=== PATIENT | female | born 1990 | race Two or more races ===

== ENCOUNTER 2017-03-20 08:11 | Day surgery (SDC) | payer OTHER ==
[~2017-03-20] VITALS: Ht 170.2 cm; Wt 68.0 kg
[2017-03-20] VITALS (9 sets, daily range): BP systolic 113–140; BP diastolic 56–74
[2017-03-20] MEDS ORDERED: Betadine 10% Oint 15gm TOPIC ONE (08:38)
[2017-03-20] MEDS ORDERED: Dexamethasone 4mg/ml vial ONE (08:38)
[2017-03-20] MEDS ORDERED: Lidocaine 1% Plain 30 ml INJ ONE (08:39)
[2017-03-20] MEDS ORDERED: Bupivacaine 0.25% Inj 30ml INJ ONE (08:39)
[2017-03-20] MEDS ORDERED: Bacitracin 50000 Units Vial ONE (08:39)
[2017-03-20] MEDS ORDERED: NKM (09:06)
[2017-03-20 09:44] LABS: BASOPHILS % (AUTO) 1.1 % (0.0-2.0); EOSINOPHILS % (AUTO) 0.7 % (0.0-3.0); MEAN CORPUSCULAR HEMOGLOBIN 26.4 PG (27.0-31.0); MEAN CORPUSCULAR VOLUME 83 FL (80-99); MEAN PLATELET VOLUME 8.9 FL (6.5-10.1); MONOCYTES % (AUTO) 7.3 % (1.0-10.0); NEUTROPHILS % (AUTO) 68.9 % (45.0-75.0); PLATELET COUNT 232 K/UL (150-450); RED BLOOD COUNT 4.52 M/UL (4.20-5.40); RED CELL DISTRIBUTION WIDTH 13.2 % (11.6-14.8); WHITE BLOOD COUNT 8.1 K/UL (4.8-10.8)
[2017-03-20 09:48] LABS: ANION GAP 15 (5-15); CALCIUM 8.8 mg/dL (8.6-10.2); CARBON DIOXIDE 24 mEQ/L (20-30); CHLORIDE 102 mEQ/L (98-107); CREATININE 0.7 mg/dL (0.5-0.9); GLOMERULAR FILTRATION RATE > 60 mL/min (>60); HEMOLYSIS 15; POTASSIUM 4.2 mEQ/L (3.4-4.9); SODIUM 141 mEQ/L (135-145)
[2017-03-20] MEDS ORDERED: Lidocaine 1% MPF 10mg/ml 5ml ONE (10:15)
[2017-03-20] MEDS ORDERED: Sterile Water Irrig 1000ml IRRIG ONE (10:15)
[2017-03-20] MEDS ORDERED: fentaNYL 100 mcg/2 mL IV ONE (10:15)
[2017-03-20] MEDS ORDERED: Midazolam 2mg/2ml Inj ONE (10:15)
[2017-03-20] MEDS ORDERED: Propofol 10mg/ml 20ml IV ONE (10:15)
[2017-03-20] MEDS ORDERED: LR 1000ml ONE (10:15)
[2017-03-20] MEDS ORDERED: NS Irrig 1000ml ONE (10:15)
--- NOTE | 2017-03-20 10:21 | Pre-Procedure Note/Attestation ---
Pre-Procedure Note/Attestation Complete Prior to Procedure Planned Procedure: right Procedure Narrative: correction of claw toe right 2nd with double arthroplasty ( PIPJ and DIPJ) with release of flexor tendon and k-wire fixation Indications for Procedure Pre-Operative Diagnosis: painful claw tore ( hammer toe and mallet toe ) right 2nd toe Attestation I attest that I discussed the nature of the procedure; its benefits; risks and complications; and alternatives (and the risks and benefits of such alternatives ), prior to the procedure, with the patient (or the patient's legal sales representative [employer]). I attest that, if there was a reasonable possibility of needing a blood transfusion, the patient (or the patient's legal sales representative [employer]) was given the [place] Department [employer] Services standardized written summary, pursuant to the Dayday Maricruz Blood Safety Act ([place] Health and Safety Code # 1645, as amended). I attest that I re-evaluated the patient just prior to the surgery and that there has been no change in the patient's H&P, except as documented below: SONI HOPE DPM Mar 20, 2017 10:21
[2017-03-20] MEDS ORDERED: Clindamycin 600mg 50 ML IV ONE (10:36)
[2017-03-20] MEDS ORDERED: LR 1000ml 1,000 ML IVLG SCH (11:03)
--- NOTE | 2017-03-20 11:03 | Anethesia Preoperative Eval ---
Anesthesia Pre-op PMH/ROS General Date of Evaluation: Mar 20, 2017 Anesthesiologist: Aaron ASA Score: ASA 1 Mallampati Score Class I : Soft palate, uvula, fauces, pillars visible Class II: Soft palate, uvula, fauces visible Class III: Soft palate, base of uvula visible Class IV: Only hard plate visible Mallampati Classification: Class I Surgeon: Lidia Diagnosis: Right second hammertoe Surgical Procedure: Right foot second toe-hammertoe correction Anesthesia History: none Family History: no anesthesia problems Allergies: Coded Allergies: PENICILLINS (Verified Allergy, Mild, 03/20/17) hives Medications: see eMAR Past Medical History Cardiovascular: Denies: CAD, HTN, MA, arrhythmia, other, valve dz Pulmonary: Denies: COPD, VIRAL, asthma, other Gastrointestinal/Genitourinary: Denies: CRI, ESRD, GERD, other Neurologic/Psychiatric: Denies: CVA, TIA, dementia, depression/anxiety, other Endocrine: Denies: DM, hypothyroidism, other, steroids HEENT: Denies: FALSE PASS (L), FALSE PASS (R), cataract (L), cataract (R), glaucoma, other Hematology/Immune: Denies: DVT, anemia, bleeding disorder, other Musculoskeletal/Integumentary: Denies: DDD, DJD, OA, RA, edema, other PSxH Narrative: Denies Anesthesia Pre-op Phys. Exam Physician Exam Last Vital Signs Date Time Temp Pulse Resp B/P Pulse Ox O2 Delivery O2 Flow Rate FiO2 03/20/17 09:26 97.6 73 20 123/68 97 Room Air Constitutional: NAD Cardiovascular: RRR Respiratory: CTA Airway Exam Mallampati Score: Class I MO: full ROM: full Teeth: intact Anesthesia Pre-op A/P Labs Hematology Test 03/20/17 09:25 White Blood Count 8.1 K/UL (4.8-10.8) Red Blood Count 4.52 M/UL (4.20-5.40) Hemoglobin 11.9 G/DL (12.0-16.0) L Hematocrit 37.3 % (37.0-47.0) Mean Corpuscular Volume 83 FL (80-99) Mean Corpuscular Hemoglobin 26.4 PG (27.0-31.0) L Mean Corpuscular Hemoglobin Concent 32.0 G/DL (32.0-36.0) Red Cell Distribution Width 13.2 % (11.6-14.8) Platelet Count 232 K/UL (150-450) Mean Platelet Volume 8.9 FL (6.5-10.1) Neutrophils (%) (Auto) 68.9 % (45.0-75.0) Lymphocytes (%) (Auto) 22.0 % (20.0-45.0) Monocytes (%) (Auto) 7.3 % (1.0-10.0) Eosinophils (%) (Auto) 0.7 % (0.0-3.0) Basophils (%) (Auto) 1.1 % (0.0-2.0) Chemistry Test 03/20/17 09:25 Sodium Level 141 mEQ/L (135-145) Potassium Level 4.2 mEQ/L (3.4-4.9) Chloride Level 102 mEQ/L (98-107) Carbon Dioxide Level 24 mEQ/L (20-30) Anion Gap 15 (5-15) Blood Urea Nitrogen 13 mg/dL (7-23) Creatinine 0.7 mg/dL (0.5-0.9) Estimat Glomerular Filtration Rate > 60 mL/min (>60) Glucose Level 92 mg/dL (74-106) Calcium Level 8.8 mg/dL (8.6-10.2) Urine Test Test 03/20/17 08:20 Urine HCG, Qualitative Negative Risk Assessment & Plan Assessment: ASA I Plan: MAC Status Change Before Surgery: No Pre-Antibiotics Drug: Clindamycin 600mg Given Within 1 Hr of Incision: Yes Time Given: 10:20 COOPER GÓMEZ M.D. Mar 20, 2017 11:03
--- NOTE | 2017-03-20 11:12 | Diagnostic Imaging Report ---
Indication: Pain Comparison: None Findings: 3 views of the right foot were obtained. No acute fractures, malalignment, erosions or periostitis are identified. Bone mineralization is within normal limits. Soft tissues are unremarkable. Impression: Negative examination of the right foot.
[2017-03-20] MEDS ORDERED: Bacitracin Oint 15gm Tube TOPIC ONE (11:15)
[2017-03-20] MEDS ORDERED: DiphenhydrAMINE 50mg/ml Inj IVP PRN (11:15)
[2017-03-20] MEDS ORDERED: Ketorolac 30mg Inj IV PRN (11:15)
[2017-03-20] MEDS ORDERED: fentaNYL 100 mcg/2 mL IV PRN (11:15)
[2017-03-20] MEDS ORDERED: Hydromorphone 0.5mg/0.5ml inj IVP PRN (11:15)
[2017-03-20] MEDS ORDERED: NS Irrig 1000ml IRRIG ONE (11:22)
--- NOTE | 2017-03-20 11:40 | Brief Operative Note ---
Immediate Post Operative Note Operative Note Pre-op Diagnosis: painful claw tore ( hammer toe and mallet toe ) right 2nd toe Procedure: arthroplasty right 2nd toe at PIPJ and DIPJ and flexor tendon release for correction of hammer and mallet toe Post-op Diagnosis: same as pre op Surgeon: soni maldonado Anesthesiologist: dr moreno Anesthesia: MAC Specimen: yes Complications: none Condition: stable Estimated Blood Loss: none Drains: none Tourniquet time: 34 Implant(s) used?: Yes SONI MALDONADO DPM Mar 20, 2017 11:40
--- NOTE | 2017-03-20 11:43 | Immediate Post-Op Evaluation ---
Immediate Post-Op Evalulation Immediate Post-Op Evalulation Procedure: Right 2nd toe hammertoe correction Date of Evaluation: Mar 20, 2017 Time of Evaluation: 11:44 IV Fluids: 600 Blood Products: 0 Estimated Blood Loss: min Urinary Output: 0 Blood Pressure Systolic: 113 Blood Pressure Diastolic: 74 Pulse Rate: 71 Respiratory Rate: 16 O2 Sat by Pulse Oximetry: 100 Temperature (Fahrenheit): 98 Pain Score (1-10): 0 Nausea: No Vomiting: No Complications 0 Patient Status: awake, reacts, patent, none Hydration Status: adequate Drug: Clindamycin 600mg Given Within 1 Hr of Incision: Yes Time Given: 10:25 COOPER GÓMEZ M.D. Mar 20, 2017 11:43
--- NOTE | 2017-03-20 14:08 | Diagnostic Imaging Report ---
Indication: Pain Comparison: None Findings: 3 views of the right foot were obtained. Postop confirmation showing K wire traversing the interphalangeal joints of the second toe. Study is otherwise negative. Impression: Postop confirmation
--- NOTE | 2017-03-20 22:01 | Pre-op HX & Phy Repo 2 SIG ---
DATE OF ADMISSION: 03/20/2017 PREOPERATIVE PODIATRIC HISTORY AND PHYSICAL DATE OF SURGERY: 03/20/2017. CHIEF COMPLAINT: Painful right second toe. HISTORY OF PRESENT ILLNESS: This is a 26-year-old female with progressively worsening pain and deformity on the right foot. The right foot had a painful prominence on the second toe at the PIP and DIP joint. The toe is curved inward and it is elongated. The pain and deformity has progressively worsened over the past years, which she has tried numerous conservative treatment measures including padding, offloading, shoe modification, application of OTC creams as well as activity modification, but she continued to experience severe achy pain. She reports no recent illnesses. No recent nausea, vomiting, fever, chills, or shortness of breath. PAST MEDICAL HISTORY: None pertinent. PAST SURGICAL HISTORY: None pertinent. MEDICATIONS: None. ALLERGIES: Penicillin. SOCIAL HISTORY: Denies alcohol, tobacco, or illicit drugs. FAMILY HISTORY: No pertinent findings. PHYSICAL EXAMINATION: VITAL SIGNS: Temperature 97.7 degrees, pulse 64, respiratory rate 16, blood pressure is 120/70, and O2 saturation is 99% on room temperature. DERMATOLOGICAL: Hyperkeratotic tissue on PIPJ and DIPJ of the second toe on the right. NEUROLOGICAL: Sensation intact to light touch. VASCULAR: Dorsalis pedis, posterior artery are palpable. No edema has been noticed. MUSCULOSKELETAL: Contraction of the second toe is noticed both at the PIP and DIP joints creating a claw formed deformity with hyperkeratotic tissue both at PIP and DIP joints to palpation. LABORATORY DATA: Urine HCG is negative. ASSESSMENT AND PLAN: This is a 26-year-old female with progressively worsening right foot pain for the past two years. She has tried numerous conservative measures, however, she is still experiencing daily pain. Recommended surgery as a next step in management of the condition. Risks, benefits and alternative were discussed with the patient in detail who understands and would like to proceed with surgical intervention. All patient's questions and concerns have been answered. The patient is scheduled to have surgery done today at [facility] by Dr. Damon Murillo. Damon Murillo D.P.M. DR: SAYRA JOB#: [id number] CC:
--- NOTE | 2017-03-20 22:15 | Operative Note - Dictated ---
DATE OF OPERATION: 03/20/2017 FACILITY: [facility]. SURGEON: Damon Murillo D.P.M. ANESTHESIOLOGIST: Dr. Walker. PREOPERATIVE DIAGNOSIS: Quadro second toe right, which consisted of hammering at the PIPJ and contraction at the DIPJ. POSTOPERATIVE DIAGNOSIS: Quadro second toe right, which consisted of hammering at the PIPJ and contraction at the DIPJ. PROCEDURE: Second toe arthroplasty at DIPJ and PIPJ with release of the flexor tendon at the level of the DIPJ of the second toe right. HEMOSTASIS: Pneumatic ankle tourniquet at 250 mmHg. ESTIMATED BLOOD LOSS: Negligible. MATERIAL USED: A 3-0 Vicryl, 4-0 Vicryl, 5-0 nylon material used also include a 0.62 K-wire. Injectable: A 10 mL consisting of 1:1% mixture of 0.25% Marcaine plain and 1% lidocaine was injected into the right foot in the operating area. Intraoperatively, the patient was injected with 1 mL of mg/mL dexamethasone and 3 mL of plain Marcaine. Bone resected from the second toe was sent to pathology for further study. Skin sample at the DIPJ was sent to rule out possible warts. DRESSING: Incision was covered with bacitracin ointment, Xeroform, 4 x 4 gauze, Kerlix, and Coban. COMPLICATION: None. Description Of Operation: The patient was brought into the operating room and was assisted on the operating table in a supine position. She was well padded to avoid excessive pressure. A timeout was performed. Cotton padding and pneumatic 18 inch ankle tourniquet was placed into the patient's right ankle following intravenous sedation and local anesthetic block was administered to the right foot in a Carrera block fashion. The second MPJ consisting of 30 mL of 1:1 mixture of 0.25% Marcaine and 1% lidocaine. The foot was then scrubbed, prepped, and draped in the usual manner. Attention was directed to the right foot. An Esmarch bandage was utilized to exsanguinate the patient's right foot and pneumatic ankle tourniquet was inflated to 250 mmHg. Local anesthesia was checked by pinching the skin with a rat-tooth forceps. The patient did not react to this treatment. Skin marker was then utilized to david the area of the surgery starting with the proximal interphalangeal joint of the second toe. A double elliptical david was utilized to decompress the colon and the PIP joint. The elliptical were connected. A blade was then utilized to remove the elliptical wedge of the encompassing the quad. A new blade was utilized to continue sharp and blunt dissection, which was carried down to the level of the joint capsule. Care was taken to retract all neurovascular structures. At this time, a linear capsulotomy approximately 1 cm was made over the PIPJ exposing the head at the proximal phalanx. Utilizing a sagittal saw approximately 2 mm of the head of the proximal phalanx was removed. Immediate reduction of contraction was noted. At this time, attention was then directed to the distal interphalangeal joint using a to expose a double elliptical encompassing the quad was utilized. Dissection was carried down to the capsule and linear capsulotomy was performed exposing the head of the middle phalanx. At this time, about 2 mm of the head of the middle phalanx was removed and through the incision, the flexor tendon was also released. Immediate reduction of the contraction was noticed and the toe seems to be in a rectus position. At this time, a K-wire was inserted from the primary incision at the PIPJ through the needle phalanx crossing the distal phalanx and tip of the toe and retracting back into the proximal phalanx to the level of the MPJ, not crossing the MPJ. The K-wire was bent and capped and cut. The patient's lavage was then utilized to flex extensor tendon, it was then approximated and closed using a 3-0 Vicryl. Deeper tissue was closed utilizing a 4-0 Vicryl and skin subsequently was closed using a 5-0 nylon. An injection of 1 mL of Decadron with 3 mL of Marcaine was given in the area for postoperative feet for edema control. The area was then dressed with Adaptic, bacitracin ointment, 4 x 4, Luana, and Coban. Ankle tourniquet was deflated. Immediate hyperemia was noted to digits 1 through 5. The patient tolerated the procedure and anesthesia well. She was transferred from the operating room to recovery room with vital signs stable and will be discharged home once cleared by the anesthesia. Damon Murillo D.P.M. DR: CAROL ANN JOB#: [id number] CC:
[2017-03-23 08:13] VITALS: BP 127/56
--- NOTE | 2017-03-23 08:13 | 48 Hour Post Anesthesia Eval ---
Post Anesthesia Evaluation Procedure: Right 2nd toe hammertoe correction Date of Evaluation: Mar 20, 2017 Time of Evaluation: 12:45 Blood Pressure Systolic: 127 0: 56 Pulse Rate: 68 Respiratory Rate: 18 O2 Sat by Pulse Oximetry: 99 Airway: patent Nausea: No Vomiting: No Pain Intensity: 0 Hydration Status: adequate Cardiopulmonary Status: at baseline Mental Status/LOC: patient returned to baseline Follow-up care needed: ready to discharge COOPER GÓMEZ M.D. Mar 23, 2017 08:13
== END 2017-03-20 13:10 | disposition home or self-care (01) ==
LOC: SUR 08:11
DX: M20.41 Other hammer toe(s) (acquired), right foot (principal); M20.5X1 Other deformities of toe(s) (acquired), right foot; Z88.0 Allergy status to penicillin
CPT/HCPCS: 28285; 36415; 73630; 76000; 80048; 81025; 85025; 97161; J1100; J2001; J2250; J2704; J3010; J3490; J7120; 94003; 94150; S0077